=== PATIENT | female | born 1965 | race Caucasian/White ===

== ENCOUNTER 2017-04-16 07:57 | Day surgery (SDC) | payer OTHER ==
[~2017-04-16 07:57] MED LIST: LIDOCAINE HCL 1% MPF SOL ONE; PROPOFOL 500 MG/50 ML EMU IV ONE
[2017-04-16 10:01] VITALS: BP 124/75; PULSE 67; RESP 20; TEMP 97; O2SAT 100
== END 2017-04-16 10:10 | disposition home or self-care (01) | DRG 951 ==
LOC: SURG 07:57
PROVIDERS: ATTEND Surgery
DX: Z12.11 Encounter for screening for malignant neoplasm of colon (principal); D12.0 Benign neoplasm of cecum; K57.30 Diverticulosis of large intestine without perforation or abscess without bleeding; Z83.71 Family history of colonic polyps; D12.5 Benign neoplasm of sigmoid colon; K62.1 Rectal polyp
CPT/HCPCS: 99001; J2001; J2704